=== PATIENT | female | born 1960 | race Caucasian/White ===

== ENCOUNTER 2024-03-29 19:29 | Emergency (ER) | payer OTHER ==
[2024-03-29 19:41] VITALS: BP 146/83; PULSE 82; RESP 18; TEMP 98.2; BMI 25.4
[2024-03-29] MEDS ORDERED: IBUPROFEN 400 MG TABLET (FP) PO ONE (20:05)
[2024-03-29] MEDS: IBUPROFEN 400 MG TABLET (FP) PO ONE (20:17)
== END 2024-03-29 22:20 | disposition home or self-care (01) ==
LOC: JERFT 19:29 → JER 19:29 → JERFT 22:20
DX: M79.642 Pain in left hand (principal); M25.532 Pain in left wrist; M25.522 Pain in left elbow; M25.521 Pain in right elbow; W01.0XXA Fall on same level from slipping, tripping and stumbling without subsequent striking against object, initial encounter; Y93.01 Activity, walking, marching and hiking
CPT/HCPCS: 73070-TC-LT-FY; 73070-TC-RT-FY; 73090-TC-LT-FY; 73110-TC-LT-FY; 73110-TC-RT-FY; 73130-TC-LT-FY; 73130-TC-RT-FY; 99283-25